=== PATIENT | female | born 1975 | race Two or more races ===

== ENCOUNTER 2021-09-15 11:14 | Outpatient (REF) | payer OTHER, SELFPAY ==
[2021-09-15 12:31] LABS: Binax Now Covid-19 Ag Positive (Negative)
[2021-09-15 12:32] LABS: Binax Internal Control QC Valid; Binax Lot number: 9864
== END 2021-09-15 11:15 | disposition home or self-care (01) ==
LOC: HO.LAB 11:14
PROVIDERS: Visit Provider Internal Medicine
DX: Z20.822 Contact with and (suspected) exposure to COVID-19 (principal)
CPT/HCPCS: 36415; C9803